=== PATIENT | male | born 1965 ===

== ENCOUNTER 2017-04-22 10:28 | Day surgery (SDC) | payer OTHER ==
[2015-10-28 08:48] VITALS: BMI 25.8
[2017-04-22] MEDS ORDERED: Lactated Ringer's 1,000 ML IV ONE (11:50)
[2017-04-22] MEDS ORDERED: Lidocaine 2% MPF (5 ml) Inj ONE (13:35)
[2017-04-22] MEDS ORDERED: Propofol 10 mg/ml Inj (20 ML) ONE (13:35)
[2017-04-22 14:08] VITALS: BP 114/56; PULSE 59; RESP 11; TEMP 98; O2SAT 98
== END 2017-04-22 14:13 | disposition home or self-care (01) ==
LOC: H.ENDO 10:28
PROVIDERS: ATTEND Internal Medicine Gastroenterology
DX: Z12.11 Encounter for screening for malignant neoplasm of colon (principal); K64.0 First degree hemorrhoids; D12.5 Benign neoplasm of sigmoid colon
CPT/HCPCS: 45380; 88305; J2704; J7120